=== PATIENT | male | born 1985 | race Caucasian/White ===

== ENCOUNTER → 2023-10-09 09:45 | Outpatient (REF) | payer BC, SELFPAY ==
--- NOTE | 2023-10-09 09:51 | CA_ITS ---
Transthoracic Echocardiogram Patient (Last, First, Middle): Charles Rossi, Gender: Male Date of : 1985 Age: 38 Procedure Date: 10/09/2023 Procedure Type: Transthoracic Echocardiogram Location: OP Height: 180.34 cm Weight: 92.99 kg BSA: 2.13 m2 Heart Rate: 67 bpm BP: 124 / 70 mmHg Chief Clinical Dietitian: MAXWELL Referring MD: Arturo Chowdhury MD Lever Tender: Ousmane Carlos MD Symptoms: FATIGUE R53.83 Study Quality: Adequate ECG Rhythm: Sinus Conclusions: - Normal study Findings Left Ventricle Normal left ventricular size, thickness, and systolic function. The visually estimated ejection fraction is between 65-70%. Diastolic function is normal for age. Peak GLS is -18.1%, within normal limits. Right Ventricle Normal right ventricular cavity size and systolic function. Atria Both atria are normal in size. There is no evidence of interatrial shunt. Aortic Valve Normal aortic valve structure and function. There is no aortic valve stenosis. There is no aortic valve regurgitation. Mitral Valve Normal mitral valve structure and function. There is no mitral valve regurgitation. There is no mitral valve stenosis. Pulmonic Valve The pulmonic valve is likely normal. Tricuspid Valve Normal tricuspid valve structure. Tricuspid regurgitation envelope is inadequate for calculation of right ventricular systolic pressure. Normal right atrial pressure. Great Vessels All visible segments of the aorta are normal in size. The visualized portions of the pulmonary artery and branches are normal. Venous The inferior vena cava is normal in size and collapses greater than 50% with inspiration. Pericardium/Pleural There is no evidence of pericardial effusion. Prior Study Comparison No prior study available for comparison. Measurements 2D Linear Measurements IVSd: 0.91 0.6-0.9/0.6-1.0 cm LVIDd: 5.37 3.9-5.3/4.2-5.9 cm LVIDd Index: 2.52 2.4-3.2/2.2-3.1 cm/m2 LVIDs: 3.13 2.0-3.6 cm LVPWd: 0.77 0.7-1.1 cm LA Diam: 3.60 2.7-3.8/3.0-4.0 cm LAIDs Index: 1.69 1.5-2.3 cm/m2 LV Mass: 203.53 67-162/88-224 g LV Mass Index: 95.55 43-95/49-115 g/m2 LVOT Diam: 2.30 3.0+(-)1.3 cm 2D Systolic Function EF 4C: 63.30 >55% EF 2C: 72.40 >55% EF BiP: 67.70 >55% Mitral Valve MV Pk E: 0.66 MV PK A: 0.51 MV Decel Time: 198.00 E/A: 1.30 E'Lateral: 11.00 E'Medial: 8.70 E/E' Med: 7.60 E/E' Lat: 6.00 PHT: 58.00 MVA PHT: 3.79 Decel O'Brien: 3.35 Aortic Valve AoV Pk Randy: 1.18 AoV Pk Grad: 6.00 RENNY: 3.55 LVOT LVOT Pk Randy: 1.01 LVOT Mn Randy: 0.72 LVOT VTI: 0.22 LVOT Pk Grad: 4.00 LVOT Mn Grad: 2.00 LVOT Diam: 2.30 LVOT Area: 4.15 Diastolic Function MV Pk E: 0.66 MV Pk A: 0.51 E/A: 1.30 E'Medial: 8.70 E/E' Med: 7.60 E' Laterial: 11.00 E/E' Lat: 6.00 Right Ventricle TAPSE (mm): 16.50 TVS' Randy: 14.00 Tricuspid Valve RA Press: 3.00 Great Vessels Aorta Sinus of Valsalva: 3.40 2.0-3.5 cm Ao Asc: 2.80 2.1-3.4 cm Ao Arch: 2.80 Pulmonary Veins Pulm Vein S/D 0.90 Pulmonary Valve PV Pk Randy: 1.07 Peak PV Grad: 5.00 Updated in Other Vendor System with Status of Final Ousmane Carlos MD electronically signed on 10/09/2023 5:12:35 PM with status of Final
== END ==
LOC: HO.CARD 09:45
PROVIDERS: Visit Provider Family Medicine
DX: R07.9 Chest pain, unspecified (principal); R53.83 Other fatigue
CPT/HCPCS: 93306; 93356

== ENCOUNTER → 2023-10-09 09:51 | Outpatient (BNV) | payer BC, SELFPAY | PROVIDERS: Visit Provider Internal Medicine Cardiovascular Disease | DX: R53.83 Other fatigue (principal) | CPT/HCPCS: 93306 ==

== ENCOUNTER 2024-10-02 05:13 | Emergency (ER) | payer BC, SELFPAY ==
--- NOTE | ~2024-10-02 | CT_ITS ---
EXAMINATION: CT ABDOMEN AND PELVIS WITH CONTRAST CLINICAL INFORMATION: Epigastric pain severe COMPARISON: None available. TECHNIQUE: Multidetector volumetric images were obtained from the superior aspect of the liver through the pubic symphysis following administration 85 mL of Omnipaque 350 intravenous contrast. Sagittal and coronal reformatted images were obtained on the technologist's workstation. Oral contrast: No This CT examination was performed using dose optimization techniques as appropriate, variously including the following: *Automated exposure control *Adjustment of mA and/or kV according to patient size (this includes techniques or standardized protocols for targeted exams where dose is matched to indication/reason for exam; i.e. extremities or head) *Use of iterative reconstruction technique DLP: 731 mGy-cm FINDINGS: LUNG BASES: The visualized lung bases are unremarkable. LIVER, GALLBLADDER, AND BILIARY TREE: The liver is normal in size, shape, and attenuation. No focal hepatic lesion or biliary ductal dilatation is present. Minimal calcification of gallbladder wall. Question gallbladder wall thickening. No pericholecystic fluid. No definite gallstones. PANCREAS: Unremarkable. SPLEEN: Unremarkable. ADRENAL GLANDS: Unremarkable. KIDNEYS AND URETERS: The kidneys are normal in size, shape, and attenuation. No hydronephrosis, hydroureter, or calculi seen. No perinephric stranding. BLADDER: Unremarkable. GASTROINTESTINAL TRACT: Appendix not visualized. No inflammatory changes in the right lower quadrant. Large bowel: Normal. Small bowel: Unremarkable STOMACH: Normal. ABDOMINAL WALL: No significant hernia is appreciated. LYMPH NODES: Normal. VASCULAR: Unremarkable. PELVIC VISCERA: Unremarkable. OSSEOUS STRUCTURES: Unremarkable. CT/CT abdomen pelvis w IV con IMPRESSION: 1. No acute abnormality. 2. Minimal calcification of the gallbladder wall. Question gallbladder wall thickening. No pericholecystic fluid. No definite gallstones. Cannot exclude early cholecystitis 3. Appendix not visualized. No inflammatory changes in the right lower quadrant. Fleischner guidelines were followed. Electronically signed by: Jamir Bloom MD 10/02/2024 08:24 AM EDT
[2024-10-02 05:16] VITALS: BP 159/94; PULSE 53; RESP 18; TEMP 36.5; O2SAT 98; BMI 28.5
[2024-10-02 06:02] LABS: MANUAL DIFF FLAG NO
[2024-10-02 06:03] LABS: Basophils Absolute Auto 0.1 X10*3/uL (0.0-0.2); Basophils Percent Auto 0.5 % (0-2); Eosinophils Absolute Auto 0.1 X10*3/uL (0.0-0.4); Eosinophils Percent Auto 0.7 % (0-4); Hematocrit 40.9 % (42.0-52.0); Hemoglobin 14.2 g/dl (14.0-18.0); Imm Gran Abs Auto 0.03 X10*3/uL (0.00-0.03); Imm Gran Pct Auto 0.3 % (0.0-0.4); Lymphocytes Absolute Auto 1.3 X10*3/uL (1.2-4.9); Lymphocytes Percent Auto 13.5 % (20-40); Mean Corpuscular HGB Conc 34.7 g/dl (31.0-36.0); Mean Corpuscular Hemoglobin 28.8 pg (27.0-33.0); Mean Platelet Volume 9.5 fL (9.4-12.4); Monocytes Absolute Auto 0.7 X10*3/uL (0.1-1.2); Monocytes Percent Auto 6.9 % (2-11); Neutrophils Absolute Auto 7.7 x10*3/uL (2.0-8.3); Neutrophils Percent Auto 78.1 % (45-73); Platelet Count 261 X10*3/uL (160-400); Red Blood Count 4.93 X10*6/uL (4.60-5.80); Red Cell Distribution Width 12.3 % (11.0-16.0); White Blood Count 9.8 X10*3/uL (4.8-10.8)
[2024-10-02 06:18] LABS: Alanine Aminotransferase 30 U/L (0-40); Albumin Level 4.6 g/dL (3.5-5.0); Alkaline Phosphatase 69 U/L (39-117); Anion Gap 15 (12-20); Aspartate Amino Transferase 24 U/L (5-37); Blood Urea Nitrogen 17 mg/dL (9-16); Calcium 9.3 mg/dL (8.4-10.2); Carbon Dioxide 24 mmol/L (22-29); Chloride 106 mmol/L (96-108); Creatinine Clr Calc Pharmacy 139.7; Estimated Glomerular Filt Rate > 60; Glucose Random 118 mg/dL (60-115); Lipase 12 U/L (8-78); Potassium 3.9 mmol/L (3.3-5.1); Sodium 141 mmol/L (135-145); Total Protein 7.5 g/dL (6.5-8.0)
--- NOTE | 2024-10-02 06:56 | ED_ITS ---
HPI - General Adult General Chief complaint: Abdominal Pain Stated complaint: Abd Pain Time Seen by Provider: 10/02/24 06:45 Source: patient Mode of arrival: ambulatory Limitations: no limitations History of Present Illness ED Provider: Ken STERN HPI narrative: This is a 39-year-old male no known medical history presenting to the emergency department with constant epigastric pain that started around midnight last night after he got home from work. Patient reports the pain as sharp pain, that has been progressively worsening accompanied with nausea and vomiting. Reports pain 7/10. Unable to tell me what makes pain better or worse. Patient denies recent sick contacts. Denies diarrhea, recent travel, chest pain, shortness of breath, fevers, chills, headache, vision changes, dizziness and weakness. Related Data Previous Rx's ?Medication ?Instructions ?Recorded ketorolac 10 mg tablet 10 mg PO TID PRN pain 5 days #15 10/02/24 tabs ondansetron 4 mg disintegrating 4 mg PO Q6H PRN nausea and 10/02/24 tablet vomiting #14 tabs Allergies Allergy/AdvReac Type Severity Reaction Status Date / Time No Known Allergies Allergy Verified 10/02/24 05:20 Review of Systems 2 Review of Systems: Yes all other systems are reviewed and are negative PMFSH Past Medical History Attestation statement: The following information was validated with the patient. Source: old records reviewed and nursing notes reviewed Social History Social History Smoked in Last 30 Days: No Use of substances other than those prescribed or required for medical reasons: No Advance Directives: No Advance Directives Information Provided: No Physical Exam ED Vital Signs: Vital Signs - 24 hr 10/02/24 05:16 10/02/24 08:00 Temperature 97.7 F 98.3 F Pulse Rate 53 73 Respiratory Rate 18 18 Blood Pressure 159/94 H 142/87 H Pulse Oximetry 98 97 Oxygen Delivery Method Room Air Room Air BMI result Body Mass Index 28.5 VSS Appearance: Alert.? Oriented X3.? No acute distress.? Head: Normocephalic, atraumatic, no step-offs or deformities Eyes: Pupils equal, round and reactive to light.? CVS: Normal heart rate and rhythm.? Pulses normal.? Respiratory: No respiratory distress.? Breath sounds normal.? Abdomen: Soft and + epigastric discomfort .? Skin: Skin warm and dry.? Normal skin color.? Normal skin turgor.? Extremities: No lower extremity edema.? No calf ttp. 5/5 strength to bilateral upper and lower extremities Back: No midline tenderness, no C-spine tenderness, full range of motion, no CVA tenderness bilaterally Neuro: Oriented X 3.? No motor deficit.? No sensory deficit. CN 2-12 intact Course Reevaluation(s) Reevaluation #1: CBC no acute findings and hitting intervention. Chemistry with no acute findings needing intervention. Lipase within normal limits. Patient's UA and CT scan pending. Time: 07:25 Reevaluation #2: UA without infection. CT scan with no acute abnormality. Minimal calcification of the gallbladder wall question gallbladder wall thickening. No pericholecystic fluid, negative Epps's on exam. Patient tolerating p.o.. This can not exclude early cholecystitis however normal labs, patient tolerating p.o. and no focal tenderness to the area, will run this by surgery for input however I suspect he can likely follow up outpatient. Appendix not visualized no inflammatory changes in the right lower quadrant, negative Rovsing, McBurney's point. I do not suspect that this is an acute appendicitis at this time. Dr. Luque general surgery does recommend follow-up this week as soon as possible. Will have him call the office on Friday for follow-up. However will have him return with any new or worsening symptoms. I did have a long conversation with patient about results of labs and imaging. I explained to him if he has any new or worsening symptoms he is to return to the emergency department immediately. I explained to him that migrating pain to the right lower quadrant or worsening quality or quantity of pain could suggest an acute process such as appendicitis or cholecystitis. I also educated him on other worsening symptoms such as fevers, chills, nausea, vomiting, worsening abdominal pain, chest pain, shortness of breath he is to return immediately. He verbalizes understanding of this. Will discharge him with Toradol. Educated patient on diagnosis and treatment plan, answered all question, patient verbalizes understanding. At this time patient will be discharged home, advised to return with new or worsening symptoms. Educated on worrisome signs and symptoms and when to return. At this time I feel comfortable discharge home. Time: 08:43 Medications Administered Discontinued Medications Generic Name Dose Route Start Last Admin Trade Name Vi PRN Reason Stop Dose Admin Iohexol 100 ml 10/02/24 07:50 10/02/24 07:51 Iohexol 350 Mg/Ml 100 Ml Infus..Btl IV 10/02/24 07:51 100 ml ONCE ONE Administration Ketorolac Tromethamine 15 mg 10/02/24 07:20 10/02/24 07:32 Ketorolac Tromethamine 15 Mg/Ml Vial IVPUSH 10/02/24 07:21 15 mg ONCE ONE Administration Medical Decision Making Medical Decision Making [facility] Narrative: 0658 39 year old male presents with epigastric abdominal discomfort ongoing since midnight accompanied by nausea and vomiting PE- epigastric discomfort on palpation Hx and pe concerning for GERD versus gastroenteritis versus abdominal cramping. Less likely appendicitis, diverticulitis, cholecystitis, pancreatitis, acute abdomen, metabolic derangements. Plan labs, urine, imaging. Differential Diagnosis Differential Diagnoses: The differential diagnosis associated with the presentation includes (Hx and pe concerning for GERD versus gastroenteritis versus abdominal cramping. Less likely appendicitis, diverticulitis, cholecystitis, pancreatitis, acute abdomen, metabolic derangements.) Admission/Observation Consideration of admission/observation: Escalation of care including admission/observation considered (Unlikely) Lab Data [facility] Lab Attestation statement: I reviewed the patient's lab results. 10/02/24 05:58 10/02/24 05:58 Labs: Lab Results 10/02/24 10/02/24 Range/Units 05:58 08:25 WBC 9.8 (4.8-10.8) X10*3/uL RBC 4.93 (4.60-5.80) X10*6/uL Hgb 14.2 (14.0-18.0) g/dl Hct 40.9 L (42.0-52.0) % MCV 83.0 (80.0-98.0) fL MCH 28.8 (27.0-33.0) pg MCHC 34.7 (31.0-36.0) g/dl RDW 12.3 (11.0-16.0) % Plt Count 261 (160-400) X10*3/uL MPV 9.5 (9.4-12.4) fL Immature Gran % (Auto) 0.3 (0.0-0.4) % Neut % (Auto) 78.1 H (45-73) % Lymph % (Auto) 13.5 L (20-40) % Keith % (Auto) 6.9 (2-11) % Eos % (Auto) 0.7 (0-4) % Baso % (Auto) 0.5 (0-2) % Lymph # (Auto) 1.3 (1.2-4.9) X10*3/uL Keith # (Auto) 0.7 (0.1-1.2) X10*3/uL Eos # (Auto) 0.1 (0.0-0.4) X10*3/uL Baso # (Auto) 0.1 (0.0-0.2) X10*3/uL Abs Immat Gran (auto) 0.03 (0.00-0.03) X10*3/uL Absolute Neuts (auto) 7.7 (2.0-8.3) x10*3/uL Absolute Nucleated RBC 0.000 (0.0-0.012) X10*3/uL Nucleated RBC % (auto) 0.0 (0.0-0.2) /100WBC Sodium 141 (135-145) mmol/L Potassium 3.9 (3.3-5.1) mmol/L Chloride 106 (96-108) mmol/L Carbon Dioxide 24 (22-29) mmol/L Anion Gap 15 (12-20) BUN 17 H (9-16) mg/dL Creatinine 0.85 (0.5-1.4) mg/dL Estim Creat Clear Calc 139.7 Estimated GFR > 60 Random Glucose 118 H (60-115) mg/dL Calcium 9.3 (8.4-10.2) mg/dL Total Bilirubin 1.0 (0.0-1.0) mg/dL AST 24 (5-37) U/L ALT 30 (0-40) U/L Alkaline Phosphatase 69 (39-117) U/L Total Protein 7.5 (6.5-8.0) g/dL Albumin 4.6 (3.5-5.0) g/dL Lipase 12 (8-78) U/L Urine Color Yellow Urine Appearance Clear Urine pH 6.5 (5.0-9.0) Ur Specific [place] >= 1.030 H (1.005-1.025) Urine Protein Negative (Neg-Trace) mg/dL Urine Glucose (UA) Negative (Negative) mg/dL Urine Ketones Trace (Negative) mg/dL Urine Blood Negative (Negative) Urine Nitrite Negative (Negative) Ur Leukocyte Esterase Negative (Negative) Urine RBC 0-2 (0-2) /HPF Urine WBC 0-5 (0-5) /HPF Ur Squamous Epith Cells 0-2 (0-2) /HPF Urine Bacteria None Seen (None Seen) Hyaline Casts 3-5 (0-2) /LPF Independent Interpretation I performed an independent interpretation of an: CT Scan Radiology Impression Discussion of test interpretation with radiology: I have reviewed the radiologist's reading. Tests considered The following testing was considered but not selected: No indication for CTA unlikely dissection. Chronic Conditions Patient denies past medical history Critical Care Time Critical Care Time Critical Care Time: Yes Total Critical Care Time: 35 Attestation: I attest to this time spent taking care of the patient, obtaining history, physical, reviewing labs, imaging, treatment of patients condition +/- specialist/hospitalist consult Discharge Plan Discharge Clinical Impression: Abdominal pain, Nausea & vomiting Patient Disposition: Home, Self-Care Instructions: Acute Nausea and Vomiting (ED), Abdominal Pain (ED) Additional Instructions: Take your medications as prescribed. If you were prescribed antibiotics today, it is important that you take your medication to their entirety, do not skip any doses, do not finish them early. Follow-up with your primary care provider this week. Return to the emergency department with new or worsening symptoms. Such as fevers, chills, chest pain, shortness of breath, nausea, vomiting, dizziness, headache, vision changes, lethargy In case of emergency call 911 As we discussed if you experience any new or worsening symptoms he must return immediately. Symptoms include worsening and quality or quantity of pain, nausea, vomiting, abdominal pain, diarrhea, fevers, chills or any new or concerning symptoms. Is also concerning if you are not tolerating any food by mouth fluids. Return immediately. You should follow-up with general surgery this week. Call to make an appointment as soon as possible. Not to exceed Friday. Toradol has been sent to your pharmacy, you tolerated this well in the department. Please take this as prescribed do not take this with ibuprofen, or other NSAIDs, do not mix this with alcohol. Side effects of this medication including increased risk for bleeding and possible kidney injury. CT/CT abdomen pelvis w IV con IMPRESSION: 1. No acute abnormality. 2. Minimal calcification of the gallbladder wall. Question gallbladder wall thickening. No pericholecystic fluid. No definite gallstones. Cannot exclude early cholecystitis 3. Appendix not visualized. No inflammatory changes in the right lower quadrant. Prescriptions: New ketorolac 10 mg tablet 10 mg PO TID PRN (Reason: pain) 5 Days Qty: 15 0RF Rx Instructions: Tolerated IM or IV in department ondansetron 4 mg tablet,disintegrating 4 mg PO Q6H PRN (Reason: nausea and vomiting) Qty: 14 0RF Referrals: [facility] [place] General Surgeons [Provider Group] - 2 days Belkis Hurtado NP [Primary Care Provider] - 2 days Stand Alone Forms: Work/School Release Print Language: Honduran
[2024-10-02] MEDS: Ketorolac Tromethamine 15 MG/ML VIAL IVPUSH (07:32)
--- NOTE | 2024-10-02 07:34 | PC.NURSE ---
Resumed care of patient at 0700. He is resting in bed comfortably, IV placed by night nurse. Pt updated of plan. IV medications given per order. Pt reporting a 6/10 pain level at this time, stating that this is tolerable for him. Call whitlock within reach. Pt reminded of needing urine sample at this time.
[2024-10-02] MEDS: iohexoL 350 MG/ML 100 ML INFUS..BTL IV (07:51)
[2024-10-02 08:00] VITALS: BP 142/87; PULSE 73; RESP 18; TEMP 36.8; O2SAT 97
[2024-10-02 08:34] LABS: Appearance Urine Clear; Color Urine Yellow; Glucose Urine UA Negative (Negative); Leukocyte Esterase Urine Negative (Negative); Nitrite Urine Negative (Negative); PH 6.5 (5.0-9.0); Specific Gravity - Urine >= 1.030 (1.005-1.025); Urine Blood Negative (Negative); Urine Ketones Trace mg/dL (Negative); Urine Protein Negative (Neg-Trace)
[2024-10-02 08:38] LABS: Bacteria Urine None Seen (None Seen); RBC Urine 0-2 /HPF (0-2); Squamous Epithelial Cell Urine 0-2 /HPF (0-2); WBC Urine 0-5 /HPF (0-5)
[2024-10-02 09:07] VITALS: BP 142/87; PULSE 73; RESP 18; TEMP 36.8; O2SAT 97
== END 2024-10-02 09:08 | disposition home or self-care (01) ==
PROVIDERS: Internal Medicine; Emergency Provider Emergency Medicine Emergency Medical Services; PCP Nurse Practitioner Primary Care
DX: R10.13 Epigastric pain (principal); R11.2 Nausea with vomiting, unspecified
CPT/HCPCS: 36415; 74177; 80053; 81001; 83690; 85025; 96374; 99284; J1885; Q9967